=== PATIENT | male | born 1935 | race Caucasian/White ===

== ENCOUNTER 2019-08-15 16:26 | Day surgery (SDC) | payer OTHER ==
[2019-08-14 17:56] VITALS: BMI 28.6
[~2019-08-15 16:26] MED LIST: EPHEDRINE SULFATE/0.9% NACL/PF 50 MG/10 ML SYRINGE NR ONE; MIDAZOLAM HCL 2 MG/2 ML SINGLE DOSE VIAL ONE; ONDANSETRON 4 MG/2 ML VIAL IVPUSH PRN; PROMETHAZINE HCL 25 MG/1 ML VIAL IVPUSH PRN; PROPOFOL 20 ML ONE; ceFAZolin SODIUM 1 GM VIAL IVPB ONE; ceFAZolin SODIUM 1 GM VIAL ONE
--- NOTE | 2019-08-15 16:26 | PREOP ---
DATE OF ADMISSION: 08/15/2019 DATE OF DICTATION: 08/15/2019 HISTORY OF PRESENT ILLNESS: Patient is an 84-year-old, male with a history of prostatism and lower urinary tract symptoms, including frequency, urgency, hesitancy, terminal dribbling, and feelings of incomplete bladder emptying. Also, has history of high blood pressure, dyslipidemia. The patient was found to have an elevated PSA of 20. A cystoscopy revealed trilobar hypertrophy of the prostate and a trabeculated bladder. Therefore, the patient is scheduled to undergo a cystoscopy and a TUR of prostate for both diagnostic and therapeutic purposes. The patient has been on Flomax and Proscar with minimal improvement. MEDICATIONS: The patient is presently on Norvasc, Crestor, Seroquel, thyroxine, Proscar, and Flomax. PHYSICAL EXAMINATION: Abdomen: Soft. Genitalia: Penis is circumcised. Meatus is adequate. Tests are normal in size and consistency. No hernias or hydroceles are elicited. His prostate is 3+, firm, nontender. LABORATORY DATA: A PSA on May 05 was 19.5. BUN and creatinine are 11 over 1, respectively. IMPRESSION: At present is abnormal digital rectal examination, elevated prostate-specific antigen, prostatism with obstruction. Plan is for a TURP. This was explained to patient and patient's daughter and they both agree. NOLBERTO QUEZADA M.D. [id number]
--- NOTE | 2019-08-15 16:39 | OP ---
Operative Note - Note: Operative Date: 08/15/19 Pre-Operative Diagnosis: bph with luts Operation: turp/tuvp Findings: obstructing prostate Post-Operative Diagnosis: Same as Pre-op Surgeon: Sue Mcdonald Anesthesia: General Specimens Removed: prostate chips Estimated Blood Loss (mls): 100 Drains & Tubes with Location: 26f 30cc [address] geiger Drains, Volume Out (mls): 0 Blood Volume Replaced (mls): 0 Fluid Volume Replaced (mls): 0 Operative Report Dictated: Yes
[2019-08-15] MEDS ORDERED: ACETAMINOPHEN 325 MG TABLET (FP) PO PRN (16:40)
[2019-08-15] MEDS ORDERED: oxyCODONE HCL 5 MG TABLET ONE (18:22)
[2019-08-15] MEDS: oxyCODONE HCL 5 MG TABLET PO PRN (18:23)
[2019-08-15] MEDS ORDERED: GLYCOPYRROLATE 0.2 MG/1 ML VIAL ONE (19:31)
[2019-08-15] MEDS ORDERED: GLYCOPYRROLATE 0.2 MG/1 ML VIAL IVPB ONE ×2 (19:34→19:38)
[2019-08-15] MEDS: CEPHALEXIN MONOHYDRATE 500 MG CAPSULE (UD) PO SCH (21:57)
[2019-08-15] MEDS ORDERED: QUEtiapine FUMARATE 25 MG TABLET PO SCH (22:00)
[2019-08-16] MEDS: oxyCODONE HCL 5 MG TABLET PO PRN ×2 (00:38→05:46)
[2019-08-16] MEDS: CEPHALEXIN MONOHYDRATE 500 MG CAPSULE (UD) PO SCH ×2 (05:47→14:10)
[2019-08-16] MEDS ORDERED: LEVOTHYROXINE NA 25 MCG TABLET (FP) PO SCH (07:00)
[2019-08-16] MEDS ORDERED: TAMSULOSIN HCL 0.4 MG CAP PO SCH (08:30)
[2019-08-16 09:46] VITALS: BP 107/46; PULSE 72; TEMP 98.5
[2019-08-16] MEDS ORDERED: amLODIPine BESYLATE 5 MG TABLET (FP) PO SCH (10:00)
--- NOTE | 2019-08-16 11:08 | OP ---
DATE OF OPERATION: 08/15/2019 PREOPERATIVE DIAGNOSIS: Elevated prostate-specific antigen, benign prostatic hypertrophy with lower urinary tract symptoms. POSTOPERATIVE DIAGNOSIS: Trilobar hypertrophy of the prostate with a grade 2-3 trabeculation of the bladder. OPERATIVE PROCEDURE: Cystourethroscopy, transurethral resection and transurethral vaporization of prostate. ANESTHESIA: Spinal. DESCRIPTION OF PROCEDURE: Under above-stated anesthesia, patient is prepped and draped in the usual sterile manner. He is placed in the dorsal lithotomy position. Cystoscopy reveals a normal anterior urethra. Prostatic urethra reveals trilobar hypertrophy of the prostate. There is lateral lobe kissing. Prostatic urethra measures 7 cm in length. The bladder is entered. Urine is collected for culture. The bladder reveals a grade 2-3 trabeculation throughout. No lesions are noted. No calculi are seen. Ureteral orifices are within normal limits with efflux of clear urine. Dome and lateral edwards are clear. The bipolar resectoscope with a loop is inserted. Resection of the prostate is commenced in the usual fashion at the 6 o'clock position of the right lateral lobe. This is carried out up to the 12 o'clock position. Same thing is done to the left lateral lobe. Lastly, the median lobe is resected. Prostate chips are evacuated with an Microtune evacuator. PlasmaButton is then introduced, and excess tissue is vaporized. Again, hemostasis is secured with electrocautery. No active bleeding is noted. The scope is removed. A 24-Maori 30-cc 3-way Nixon catheter is inserted. This is connected to a drainage bag. The patient tolerated the procedure well. He returned to the recovery room in good condition. Venus [id number]
--- NOTE | 2019-08-17 16:16 | PATH ---
Cytology Non-Gynecological Report Patient Name: BRANDY WINTER Med. Rec. #: [id number] /Age/Gender: 1935 (Age: 83) / M Account: [id number] Location: AMBULATORY SURG Taken: 08/15/2019 Received: 08/16/2019 Reported: 08/17/2019 Physicians: Sue Mcdonald M.D. Specimen(s) Received URINE VOIDED Clinical History Benign prostatic hypertrophy Final Diagnosis URINE FOR CYTOLOGY: SATISFACTORY FOR EVALUATION. NEGATIVE FOR MALIGNANCY. RED BLOOD CELLS AND SCATTERED NEUTROPHILS PRESENT. Electronically Signed Ernesto Unger M.D. Gross Description Approximately 60cc of bloody fluid received fresh. One cytospin prepared.
--- NOTE | 2019-08-17 16:59 | PATH ---
Surgical Pathology Report Patient Name: BRANDY WINTER Med. Rec. #: [id number] /Age/Gender: 1935 (Age: 83) / M Account: [id number] Location: AMBULATORY SURG Taken: 08/15/2019 Received: 08/16/2019 Reported: 08/17/2019 Physicians: Sue Mcdonald M.D. Specimen(s) Received PROSTATE CHIPS Clinical History Benign prostate hyperplasia Final Diagnosis PROSTATE CHIPS, TRANSURETHRAL RESECTION OF PROSTATE: BENIGN PROSTATIC TISSUE WITH STROMAL AND GLANDULAR HYPERPLASIA, ACUTE AND CHRONIC PROSTATITIS. ADJACENT UROTHELIAL MUCOSA WITH ACUTE AND CHRONIC INFLAMMATION. Electronically Signed Ernesto Unger M.D. Gross Description Received in formalin labeled "prostate chips," is a 6 g, 7.0 x 5.0 x 0.5 cm aggregate of storey, irregular, firm to rubbery portions of tissue, consistent with prostate chips. The specimen is entirely submitted in 7 cassettes. /08/16/2019 saudi08/16/2019
== END 2019-08-16 16:29 | disposition home or self-care (01) ==
LOC: JASUSAT 16:26 → J6S 21:37 → JASUSAT 08-16 16:29
PROVIDERS: ATTEND Urology
PROC: 0VT08ZZ Resection of Prostate, Via Natural or Artificial Opening Endoscopic (ICD-10-PCS; principal; 2019-08-15 12:00)
DX: N40.0 Benign prostatic hyperplasia without lower urinary tract symptoms (principal); N32.89 Other specified disorders of bladder
CPT/HCPCS: 87086; 88108; 88305-TC; 94760